=== PATIENT | female | born 1940 | race Caucasian/White ===

== ENCOUNTER 2023-05-06 13:23 | Emergency (ER) | payer MEDICARE, BC, SELFPAY ==
[2023-05-06 13:34] VITALS: BP 207/84; PULSE 84; RESP 18; TEMP 36.8; O2SAT 97; BMI 23.9
--- NOTE | 2023-05-06 14:11 | ED.GENADULT ---
HPI - General Adult General Date Seen: 05/06/23 Chief complaint: Hypertension Stated complaint: High bp Time Seen by Provider: 05/06/23 14:00 History of Present Illness HPI narrative: This is an 82-year-old female with history of hypertension, hypothyroidism, hypercholesterolemia, vitamin-D deficiency, type 2 diabetes, diabetic neuropathy, reflux esophagitis, anxiety/depression, presenting to the ER today for elevated blood pressure readings. She had taken her blood pressure couple of times at home and it was elevated. She went to the clinic and it was 191 systolic. She follows with the [facility] for her long-term health management. She does have a known diagnosis of high blood pressure and is currently prescribed Cozaar 50 mg daily and verapamil 120 mg daily. She is also on Synthroid, fluoxetine, baby aspirin, albuterol p.r.n., Fosamax, calcium/vitamin-D, fluticasone nasal spray She says that for the past couple of weeks she has just been feeling off. She has had a mild headache most of the day every day for the past couple of weeks it is mostly in the bifrontal region. She has been taking Tylenol or ibuprofen for that. She also has some chest pain in the left upper chest but actually that is been chronic and unchanged for the past few years. She has been very active and she has been using a new saw that her son got her to trim some branches from the trees on her [place] and out of her growth. She has known hypertension and does have a cuff at home. She measured her blood pressure couple of times per week and typically gets blood pressures around the 140 systolic range, a little bit on the top end of normal. For the past couple of weeks she has had blood pressures more in the 160s and 1 measurement up to 175. Today in clinic she had a blood pressure of about 190 and then again at 200 systolic so came here to the ER No other new symptoms today. No new chest pain. No new headache. No other focal numbness or tingling in her arms or legs. No confusion. Urination has been normal. No swelling in her legs. She has no previous history of coronary disease or stroke. Related Data Home Medications Medication Instructions Recorded Confirmed albuterol sulfate 90 mcg/actuation 2 puff inhalation Q4H PRN wheezing 05/06/23 05/06/23 aerosol inhaler alendronate 70 mg tablet 70 mg PO 05/06/23 aspirin 81 mg tablet,delayed 81 mg PO DAILY 05/06/23 05/06/23 release calcium carbonate 600 mg-vitamin 1 tab PO BID 05/06/23 05/06/23 D3 10 mcg (400 unit) tablet fluoxetine 40 mg capsule 40 mg PO DAILY 05/06/23 05/06/23 levothyroxine 100 mcg tablet 100 mcg PO DAILY 05/06/23 05/06/23 losartan 50 mg tablet 50 mg PO DAILY 05/06/23 05/06/23 omeprazole 20 mg capsule,delayed 20 mg PO DAILY 05/06/23 05/06/23 release verapamil 120 mg 24 hr 120 mg PO DAILY 05/06/23 05/06/23 capsule,extended release Previous Rx's Medication Instructions Recorded losartan 50 mg tablet (Cozaar) 50 mg PO BID #30 tabs 05/06/23 Allergies Allergy/AdvReac Type Severity Reaction Status Date / Time No Known Drug Allergies Allergy Verified 05/06/23 13:38 Exam Narrative: Exam Narrative: Constitutional: Appears well-developed and well-nourished. Alert. Conversant. Non toxic. HENT: Head: Superficial abrasion on left forehead looks to be healing well. No signs of infection. No depressed skull fracture, Raccoon Eyes, Morrow's sign, or hemotympanum. Face normal. TMs normal Nose: Nose normal. Mouth/Throat: Oral mucosa is clear and moist. no trismus. Pharynx normal. Tonsils symmetric. No tonsillar enlargement, erythema, or exudate. Eyes: Conjunctivae normal. EOM normal. Pupils equal, round, and reactive to light. No scleral icterus. Neck: Normal range of motion. Neck supple. No tracheal deviation present. No JVD Cardiovascular: Normal rate, regular rhythm. No gallop. No friction rub. No murmur heard. Symmetric radial and DP artery pulses Pulmonary/Chest: Effort normal. No stridor. No respiratory distress. No wheezes. No rales. No rhonchi . No tenderness. Abdominal: Soft. Bowel sounds normal. No distension. No mass. No tenderness. No rebound. No guarding. Musculoskeletal: RUE: Normal range of motion. No tenderness. No deformity LUE: Normal range of motion. No tenderness. No deformity RLE: Normal range of motion. No edema. No tenderness. No deformity LLE: Normal range of motion. No edema. No tenderness. No deformity Lymph: No cervical adenopathy. Neurological: Mental status normal. Attention normal. Alert and oriented x3. GCS 15. Memory normal. Speech fluent. Cognition normal. Cranial Nerves intact II-XII except I did not formally test gag or visual acuity. EOMI. Palate elevates symmetrically and tongue protrudes in the midline. Strength: 5/5 trapezius on the right and left 5/5 deltoid on the right and left 5/5 biceps on the right and left 5/5 triceps on the right and left 5/5 toddler caregiver on the right and left 5/5 thumb opposition on the right and left 5/5 finger abduction on the right and left 5/5 hip flexors (L3) on the right and left 5/5 quadriceps (L4) on the right and left 5/5 tibialis anterior on the right and left 5/5 EHL (L5) on the right and left 5/5 gastrocnemius (S1) on the right and left 5/5 hamstring on the right and left Sensation intact to light touch in both upper extremities (C4-T1) Sensation intact to light touch in Both lower extremities (L4-S1). Finger to nose and coordination normal. Gait normal. Skin: Skin is warm and dry. No rash noted. No pallor. Normal capillary refill. Psychiatric: Normal mood. Normal affect. Const: Vital Signs, click to edit/add: Vital Signs - 24 hr 05/06/23 13:34 05/06/23 14:51 Temperature 98.2 F Pulse Rate [Pulse Oximeter] 84 Respiratory Rate 18 Blood Pressure 187/94 H Blood Pressure [Ri ght Upper Arm] 207/84 H Pulse Oximetry 97 Oxygen Delivery Me thod Room Air Course Vital Signs Vital signs: Initial Vital Signs Temperature 98.2 F 05/06/23 13:34 Temperature Source Temporal Artery Scan 05/06/23 13:34 Pulse Rate 84 05/06/23 13:34 Respiratory Rate 18 05/06/23 13:34 Blood Pressure 207/84 H 05/06/23 13:34 Blood Pressure Mean 125 H 05/06/23 13:34 Pulse Oximetry 97 05/06/23 13:34 Oxygen Delivery Method Room Air 05/06/23 13:34 Vital Signs Temperature 98.2 F 05/06/23 13:34 Pulse Rate 84 02/29/24 13:34 Respiratory Rate 18 05/06/23 13:34 Blood Pressure 207/84 H 05/06/23 13:34 Pulse Oximetry 97 05/06/23 13:34 Oxygen Delivery Method Room Air 05/06/23 13:34 Temperature 98.2 F 05/06/23 13:34 Pulse Rate 84 05/06/23 13:34 Respiratory Rate 18 05/06/23 13:34 Blood Pressure 187/94 H 05/06/23 14:51 Pulse Oximetry 97 05/06/23 13:34 Oxygen Delivery Method Room Air 05/06/23 13:34 Medications Administered Medications: Discontinued Medications Generic Name Dose Route Start Last Admin Trade Name Freq PRN Reason Stop Dose Admin Ketorolac Tromethamine 15 mg 05/06/23 14:31 05/06/23 14:56 Ketorolac 15 Mg/Ml Inj IVP 05/06/23 14:32 15 mg ONCE ONE Administration Medical Decision Making MDM Narrative Medical decision making narrative: This patient presents for evaluation of elevated blood pressure. There is a history of hypertension in the past currently on for [employer] L1 on 20 mg daily and losartan 50 mg daily. No concerning symptoms of chest pain , severe headache, neurologic deficits. The workup here is negative and the patient does not have any clinical, laboratory, ecg or historical signs of end-organ dysfunction. There is no signs of hypertensive emergency or urgency. Supportive outpatient management is therefore indicated with close follow-up of primary care physician. Given data obtained here in ED, will increase her losartan up to 50 mg twice daily. for therapy at this time and encouraged serial blood pressure monitoring at home to aid primary in decision making regarding hypertension. She will follow-up with primary care next week for blood pressure recheck and further management. Precautions for return to the ER reviewed. Lab Data Labs: Lab Results 05/06/23 Range/Units 14:45 WBC 8.47 (4.50-11.00) K/uL RBC 4.36 (4.00-5.20) m/uL Hgb 13.5 (12.0-16.0) gm/dL Hct 42.6 (33.0-51.0) % MCV 98 (80-100) fL MCH 31 (26-34) pg MCHC 32 (32-36) gm/dL RDW Coeff of [place] 13.0 (11.5-15.5) % Plt Count 320 (140-440) K/uL Neut % (Auto) 72.5 H (42.0-72.0) % Lymph % (Auto) 16.2 L (20-44) % [place] % (Auto) 7.1 (0.0-11.0) % Eos % (Auto) 3.1 (0.0-7.0) % Baso % (Auto) 0.5 (0.0-3.0) % Neut # (Auto) 6.10 (1.7-7.0) K/uL Lymph # (Auto) 1.40 (0.90-2.90) K/uL [place] # (Auto) 0.60 (0.00-0.90) K/UL Eos # (Auto) 0.26 (0.00-0.50) K/uL Baso # (Auto) 0.04 (0.00-0.30) K/uL Abs Immat Gran (auto) 0.05 (0.00-0.30) K/uL Imm/Tot Granulo (auto) 0.6 % Sodium 139 (135-149) mmol/L Potassium 4.4 (3.6-5.1) mmol/L Chloride 101 (96-114) mmol/L Carbon Dioxide 26 (20-32) mmol/L Anion Gap 12 (7-15) mEq/L BUN 21 (7-30) mg/dL Creatinine 0.7 (0.5-1.5) mg/dL Estimated Creat Clear 41.45 Estimated GFR 86 ml/min Glucose 118 H (60-115) mg/dL Calcium 9.9 (8.4-10.6) mg/dL Troponin I < 0.01 L (0.01-0.04) ng/mL Imaging Data CT scan - head: Attestation: I have reviewed the pertinent imaging results. Radiologist's impression: IMPRESSION: Unremarkable noncontrast head CT. ECG Data Attestation: I personally reviewed and interpreted this ECG as follows: Interpretation: Normal sinus rhythm rate 77 KS 134 QRS axis normal axis. No pathologic Q-waves. ST segment/T wave: No ST segment elevation or depression. QTc: 441 Discharge Plan Discharge Clinical Impression: Hypertension Patient Disposition: Home, Self-Care Condition: Stable Instructions: Hypertension (ED) Additional Instructions: As we discussed, please continue on all of your current medications including your verapamil. Increase your dose of Cozaar from 1 tablet per day up to 1 tablet twice per day. I sent a new prescription for Cozaar to your pharmacy. If you have any worsening chest pain, headache, dizziness, numbness or weakness in your arm, trouble speaking, or any concerns, come back to the ER right away. Even if you continue to feel better, follow-up with your doctor within 1 week to have your blood pressure rechecked. Prescriptions: New losartan [Cozaar] 50 mg tablet 50 mg PO BID Qty: 30 0RF No Action losartan 50 mg tablet 50 mg PO DAILY fluoxetine 40 mg capsule 40 mg PO DAILY alendronate 70 mg tablet 70 mg PO aspirin 81 mg tablet,delayed release (DR/EC) 81 mg PO DAILY levothyroxine 100 mcg tablet 100 mcg PO DAILY omeprazole 20 mg capsule,delayed release(DR/EC) 20 mg PO DAILY albuterol sulfate 90 mcg/actuation HFA aerosol inhaler 2 puff INHALATION Q4H PRN (Reason: wheezing) verapamil 120 mg capsule,ext rel. pellets 24 hr 120 mg PO DAILY calcium carbonate-vitamin D3 600 mg-10 mcg (400 unit) tablet 1 tab PO BID Follow Up/Referrals: Jayne Alvarado MD [Primary Care Provider] - Stand Alone Forms: [employer] Info Instructions
--- NOTE | 2023-05-06 14:30 | CT_ITS ---
Patient: BROOKLYNN WILLOUGHBY Facility:?[facility] Patient ID:?[id number] Site Patient ID:?[id number]. Site :?[id number] Study:?CT-Head WITHOUT-05/06/2023 2:47:43 PM Ordering Physician:?DR. FREGOSO Final Report: INDICATION: Headache, elevated blood pressure TECHNIQUE: CT head without contrast. COMPARISON: Head CT 10/17/2016 FINDINGS: CSF spaces: Within normal limits for age. Brain parenchyma: The navarrete-white differentiation is normal. No sign of mass, hemorrhage, or midline shift. Skull base and calvarium: The visualized paranasal sinuses and mastoid air cells demonstrate no acute or significant findings. The visualized orbits are grossly unremarkable. No skull fractures. Atherosclerosis. IMPRESSION: Unremarkable noncontrast head CT. Please note that all CT scans at this facility use dose modulation, iterative reconstruction, and/or weight-based dosing when appropriate to reduce radiation dose to as low as reasonably achievable. Dictated by Yariel Mahajan MD @ 05/06/2023 3:23:35 PM Signed by:?Yariel Mahajan MD @05/06/2023 3:23:35 PM (Electronic Signature)
[2023-05-06 14:51] VITALS: BP 187/94
[2023-05-06 14:53] LABS: Basophils Absolute Auto 0.04 K/uL (0.00-0.30); Basophils Percent Auto 0.5 % (0.0-3.0); Eosinophils Absolute Auto 0.26 K/uL (0.00-0.50); Eosinophils Percent Auto 3.1 % (0.0-7.0); Hematocrit 42.6 % (33.0-51.0); Hemoglobin* 13.5 gm/dL (12.0-16.0); Immature Granulocytes Abs Auto 0.05 K/uL (0.00-0.30); Immature Granulocytes Pct Auto 0.6 %; Lymphocytes Percent Auto 16.2 % (20-44); Mean Corpuscular HGB Conc 32 gm/dL (32-36); Mean Corpuscular Hemoglobin 31 pg (26-34); Mean Corpuscular Volume 98 fL (80-100); Monocytes Percent Auto 7.1 % (0.0-11.0); Neutrophils Percent Auto 72.5 % (42.0-72.0); Platelet Count* 320 K/uL (140-440); Red Blood Count 4.36 m/uL (4.00-5.20); White Blood Count* 8.47 K/uL (4.50-11.00)
[2023-05-06 14:54] LABS: Slide Review Reflex No
[2023-05-06] MEDS: KETOROLAC 15 MG/ML inj IVP (14:56)
[2023-05-06 15:05] LABS: Chloride* 101 mmol/L (96-114)
[2023-05-06 15:06] LABS: Potassium* 4.4 mmol/L (3.6-5.1); Sodium* 139 mmol/L (135-149)
[2023-05-06 15:08] LABS: Anion Gap 12 mEq/L (7-15); Carbon Dioxide* 26 mmol/L (20-32); Creatinine* 0.7 mg/dL (0.5-1.5); Est. Creatinine Clearance* 41.45; Estimated Glomerular Filt Rate 86 ml/min
[2023-05-06 15:09] LABS: Blood Urea Nitrogen* 21 mg/dL (7-30); Calcium* 9.9 mg/dL (8.4-10.6); Glucose* 118 mg/dL (60-115)
[2023-05-06 15:30] LABS: Troponin I* < 0.01 ng/mL (0.01-0.04)
[2023-05-06 16:05] VITALS: BP 170/95; RESP 16; O2SAT 99
== END 2023-05-06 16:07 | disposition home or self-care (01) ==
PROVIDERS: Emergency Provider Emergency Medicine; PCP Family Medicine
DX: I10 Essential (primary) hypertension (principal)
CPT/HCPCS: 36415; 70450; 80048; 84484; 85025; 93005; 96374; 99283; 99284; J1885